=== PATIENT | female | born 1975 | race African-American/Black ===

== ENCOUNTER 2016-08-30 07:31 | Day surgery (SDC) | payer OTHER ==
[2016-08-29 12:16] VITALS: BMI 33.9
[~2016-08-30 07:31] MED LIST: BUPIVACAINE HCL/PF 0.5% (5MG/ML) 10 ML VIAL IJ ONE; ceFAZolin SODIUM 1 GM VIAL IVPB ONE
[2016-08-30] MEDS ORDERED: BUPIVACAINE HCL/PF 0.5% (5MG/ML) 10 ML VIAL ONE ×2 (08:14→13:43)
[2016-08-30] MEDS ORDERED: PROPOFOL 20 ML ONE (14:05)
[2016-08-30] MEDS ORDERED: ROCURONIUM BROMIDE 50 MG/5 ML VIAL ONE ×2 (14:05→16:00)
[2016-08-30] MEDS ORDERED: MIDAZOLAM HCL 2 MG/2 ML SINGLE DOSE VIAL ONE (14:05)
[2016-08-30] MEDS ORDERED: LIDOCAINE HCL/PF 2% SDV 5ML VIAL ONE (14:06)
--- NOTE | 2016-08-30 14:41 | HP ---
History & Physical Update - History History: No Change - Physical Physical: No Change - Assessment Assessment: No Change - Plan Plan: No Change
[2016-08-30] MEDS ORDERED: GLYCOPYRROLATE 0.2 MG/1 ML VIAL ONE (15:01)
[2016-08-30] MEDS ORDERED: ceFAZolin SODIUM 1 GM VIAL ONE (15:03)
[2016-08-30] MEDS ORDERED: ceFAZolin SODIUM 1 GM VIAL IVPB ONE (15:05)
[2016-08-30] MEDS ORDERED: DEXAMETHASONE SOD PHOSPHATE 4 MG/1 ML VIAL ONE (15:38)
[2016-08-30] MEDS ORDERED: ePHEDrine SULFATE 50 MG/1 ML AMPULE ONE (15:45)
[2016-08-30] MEDS ORDERED: oxyCODONE HCL 5 MG TABLET PO PRN ×2 (16:08→19:11)
[2016-08-30] MEDS ORDERED: ONDANSETRON 4 MG/2 ML VIAL IVPUSH PRN (16:08)
[2016-08-30] MEDS ORDERED: LACTATED RINGERS SOLUTION 1,000 ML IV SCH ×2 (16:15→19:15)
[2016-08-30] MEDS ORDERED: DESFLURANE GAS 240 ML BOTTLE IH ONE (18:20)
--- NOTE | 2016-08-30 19:09 | OP ---
Operative Note - Note: Operative Date: 08/30/16 Pre-Operative Diagnosis: ventral hernia Operation: robotic assisted laparoscopic multiple ventral hernia repair with mesh and component separation Post-Operative Diagnosis: Same as Pre-op Surgeon: Chapito Rutherford [employer] Professor: Lubna Rael Anesthesiologist/WASHCLOTH FOLDER: Jennyfer Rose Anesthesia: General Estimated Blood Loss (mls): 20 Fluid Volume Replaced (mls): 2,200 Operative Report Dictated: Yes
--- NOTE | 2016-08-30 19:10 | SURG ---
Surgery Foreign Legal Consultant Note Foreign Legal Consultant: Lubna Real PA-C Date of Service: 08/30/16 Diagnosis: ventral hernia Procedure: robotic assisted laparoscopic multiple ventral hernia repair with mesh and component separation I was present for the entirety of the operative procedure. For further detail, please refer to operative report. Visit type - Case Type Case Type: Scheduled Admission - Emergency Emergency Visit: No - New patient This patient is new to me today: Yes Date on this admission: 08/30/16 - Critical Care Critical Care patient: No
[2016-08-30] MEDS ORDERED: ACETAMINOPHEN 325 MG TABLET (FP) PO PRN (19:11)
[2016-08-30] MEDS: oxyCODONE HCL 5 MG TABLET PO PRN (22:53)
[2016-08-31] MEDS: oxyCODONE HCL 5 MG TABLET PO PRN (09:11)
[2016-08-31] MEDS ORDERED: amLODIPine BESYLATE 10 MG TABLET (FP) PO SCH (10:00)
[2016-08-31] MEDS ORDERED: FERROUS SO4 325 MG TABLET (FP) PO SCH (10:00)
[2016-08-31] MEDS ORDERED: MULTIVITAMINS THER W-MINERALS COMBO TABLET (FP) PO SCH (10:00)
[2016-08-31] MEDS ORDERED: HYDROCHLOROTHIAZIDE 25 MG TABLET (FP) PO SCH (10:00)
[2016-08-31] MEDS ORDERED: PATIENT'S OWN MEDICATION (NON-FORMULARY) (Lisinopril/Hydrochlorothiazide [Lisinopril-Hctz PO SCH (10:00)
[2016-08-31] MEDS ORDERED: LISINOPRIL 20 MG TABLET (FP) PO SCH (10:00)
--- NOTE | 2016-08-31 10:33 | PN ---
Progress Note (short form) - Note Progress Note: POD#1 Pt states that she tolerated a diet, positive flatus. No nause or emesis. Voiding without difficulty. Vital Signs Period Temp Pulse Resp BP Sys/Aparicio Pulse Ox Last 24 Hr 98.3 F-98.8 F 73-95 14-20 116-134/65-87 98-100 PE: GEN: appears comfortable CV: RRR Lungs: CTA bl ABD: soft, non-distended, inc tenderness. port sites c/d/i with dermabond. midline dressing dry. LE: no calf tenderness or swelling noted b/l A/P: 41 yo female s/p robotic ventral hernia repair with component separation S/w Dr. MOSELEY, patient for discharge today. D/w patient, she is to leave her dressing in place and wear abd binder Follow-up on Monday in his office
[2016-08-31 10:42] VITALS: BP 138/76; PULSE 87; TEMP 98.6
--- NOTE | 2016-08-31 14:07 | OP ---
DATE OF OPERATION: 08/30/2016 PROCEDURES PERFORMED: 1. Robotic-assisted laparoscopic multiple ventral hernia repair with mesh, with component separation. 2. Lysis of adhesions. PREOPERATIVE DIAGNOSIS: Ventral hernia. POSTOPERATIVE DIAGNOSIS: Multiple ventral hernias with chronic obstruction. SURGEON: Chapito Rutherford MD GRAPPLE YARDER OPERATOR: ZORA Real ANESTHESIA: General endotracheal. FINDINGS AT PROCEDURE: This is a 41-year-old female who presents with a longstanding history of nonreducible supraumbilical bulge which was about 8 x 6 cm on physical examination. Attempts to reduce the hernia proved unsuccessful. So, the patient was advised repair of the hernia and consent was obtained after discussing the risks , benefits and alteratives of the procedure. PROCEDURE IN DETAIL: The patient was brought to the operating room and placed in the supine position. General endotracheal anesthesia was administered. A roll was placed under the patient's left flank. The abdomen was then prepped and draped in the usual sterile fashion. Using 0.5% Marcaine local anesthesia was administered to the proposed incision site. The peritoneal cavity was entered using Veress needle technique with an 8-mm left subcostal incision in the anterior axillary line. Pneumoperitoneum was established. The 3-D 30-degree laparoscope was inserted and the peritoneal cavity was carefully inspected to rule out inadvertent injury. Two ventral hernias, one at a umbilicus and one at the epigastric region containing incarcerated omentum was identified. Two 8-mm ports were inserted left flank, one at the level of the umbilicus and one at the left lower quadrant, at least 15 cm away from the umbilicus and 7 mm away from each other. The laparoscope was then transferred to the middle port and the target organ was set. The robotic arms were docked. The EndoWrist shear connected to monopolar cautery was inserted at the left subcostal port and the fenestrated bipolar forceps was inserted at the left lower quadrant port. The undersigned then scrubbed out to commence the console part of the procedure. The omentum was then taken down sharply using the EndoWrist lizzy. A large amount of omentum was reduced and at this point the umbilical hernia was about 4 cm in its widest diameter and the epigastric hernia was noted to be about 8 cm in its widest diameter. The parietal peritoneum 5 cm to the left of the midline was then scored using the EndoWrist lizzy. Due to its close adherence to the posterior rectus sheath there is was decided to do a component separation of the posterior rectus sheath. This was carried down at the level of the falciform about 5 cm away from the midline from the level of the falciform ligament down to the level about 5 cm below the umbilical defect. Dissection was carried toward the midline using combined sharp dissection and blunt dissection with the EndoWrist lizzy by fenestrated bipolar. The sacs of both the umbilicus and the epigastric hernias were were taken down. After that, dissection was carried to the right of the midline the posterior rectus sheath from the rectus abdominis muscle. This dissection was carried to at least about 5 cm away from the midline. After the dissection was completed the defect was closed by apposing the anterior rectus sheath covering the rectus muscle with continuous No. 1 V-Loc nonabsorbable sutures. After the primary closure was deemed satisfactory a 25-cm x 10-cm ProGrip mesh was deployed to reinforce the primary closure of the posterior abdominal wall with at least 5 cm overlap on each side, superiorly and inferiorly. The posterior rectus sheath was then closed with running V-Loc 2-0 nonabsorbable sutures. The multiple small defects created during the dissection were also closed with V-Loc 2-0 absorbable sutures. After the closure was deemed satisfactory, the peritoneal cavity was carefully inspected and it was noted to be free of active bleeding or inadvertent bowel injury. The instruments were removed and the robotic arms were undocked. The pneumoperitoneum was evacuated and the ports were removed. The wounds were closed with a subcuticular Biosyn 4-0 sutures, reinforced with Dermabond and a pressure dressing was applied at the midline skin over the subcutaneous space to prevent seroma formation. The patient was successfully extubated and transferred to the post anesthesia care unit in satisfactory condition ESTIMATED BLOOD LOSS: About 20 mL. WOUND CLASS: Clean. MEDICATIONS: The patient received 1 g Ancef prior to proceeding with the procedure. Magda [id number] MTDD
== END 2016-08-31 11:04 | disposition home or self-care (01) ==
LOC: JASU-SURG 07:31 → J6S 21:45 → JASU-SURG 08-31 11:04
PROVIDERS: ATTEND Surgery
PROC: 8E0W4CZ Robotic Assisted Procedure of Trunk Region, Percutaneous Endoscopic Approach (ICD-10-PCS; 2016-08-30)
PROC: 0WUF4JZ Supplement Abdominal Wall with Synthetic Substitute, Percutaneous Endoscopic Approach (ICD-10-PCS; principal; 2016-08-30 09:00)
DX: K43.6 Other and unspecified ventral hernia with obstruction, without gangrene (principal); Q79.59 Other congenital malformations of abdominal wall; K66.0 Peritoneal adhesions (postprocedural) (postinfection)
CPT/HCPCS: 49653; S2900; 84703; 94760

== ENCOUNTER 2018-05-22 19:35 | Emergency (ER) | payer OTHER ==
[2018-05-22 19:58] VITALS: TEMP 98.5; BMI 33.3
[2018-05-22 20:17] LABS: BASO % 0.3 % (0-2.0); EOS % 1.6 % (0-4.5); HEMATOCRIT 30.3 % (32.4-45.2); HEMOGLOBIN 9.5 GM/dL (10.7-15.3); LYMPH % 24.8 % (8-40); MCH 20.9 pg (25.7-33.7); MCHC 31.2 g/dl (32.0-36.0); MEAN CELL VOLUME 66.8 fl (80-96); MEAN PLT VOLUME 9.6 fl (7.5-11.1); MONO % 9.5 % (3.8-10.2); NEUT % 63.8 % (42.8-82.8); PLATELET COUNT 237 K/MM3 (134-434); RBC 4.53 M/mm3 (3.60-5.2); RDW 21.5 % (11.6-15.6); WHITE BLOOD COUNT 9.7 K/mm3 (4.0-10.0)
[2018-05-22 20:25] LABS: URINE APPEARANCE CLOUDY; URINE BILIRUBIN NEGATIVE (<2.0 mg/dL); URINE COLOR YELLOW; URINE GLUCOSE (UA) NEGATIVE (NEGATIVE); URINE KETONE NEGATIVE (NEGATIVE); URINE LEUK ESTERASE 3+ (NEGATIVE); URINE NITRITE NEGATIVE (NEGATIVE); URINE PROTEIN NEGATIVE (NEGATIVE); URINE UROBILINOGEN NEGATIVE mg/dL (0.2-1.0)
[2018-05-22 20:34] LABS: EPI CELLS MANY /HPF (FEW); URINE BACTERIA RARE /hpf (NONE SEEN); URINE MUCUS RARE
[2018-05-22 21:09] LABS: ANION GAP 8 MMOL/L (8-16); BLOOD UREA NITROGEN 11 mg/dL (7-18); CALCIUM 9.3 mg/dL (8.5-10.1); CHLORIDE 103 mmol/L (98-107); CO2 26 mmol/L (21-32); CREATININE 0.6 mg/dL (0.55-1.3); GLUCOSE,RANDOM 90 mg/dL (74-106); POTASSIUM 3.6 mmol/L (3.5-5.1); SODIUM 137 mmol/L (136-145)
[2018-05-22] MEDS ORDERED: amLODIPine BESYLATE 10 MG TABLET (FP) PO ONE (21:21)
[2018-05-22] MEDS ORDERED: LISINOPRIL 20 MG TABLET (FP) PO ONE (21:21)
[2018-05-22] MEDS ORDERED: ATENOLOL 25 MG TABLET (FP) PO ONE (21:21)
--- NOTE | 2018-05-22 21:33 | PDOC ---
History of Present Illness - General Chief Complaint: Weakness Stated Complaint: Lightheaded/weakness Time Seen by Provider: 05/22/18 21:14 History Source: Patient Exam Limitations: No Limitations - History of Present Illness Initial Comments: 05/22/18 21:27 HISTORY OF PRESENT ILLNESS: 43-year-old woman with past medical history of hypertension presents emergency department for evaluation of general malaise and weakness for the past 3 days. Patient reports also having a mild headache starting this morning upon awakening. Patient states she takes 3 different antihypertensives but does so irregularly. Patient has not taken her medication earlier today. Patient noted to have a blood pressure 178/113 in triage as well as a heart rate of 101. No recent travel or sick contacts. PAST MEDICAL HISTORY: HTN SURGICAL HISTORY: Denies ALLERGIES: No known drug allergies REVIEW OF SYSTEMS General/Constitutional: Denies fever or chills. Generalized weakness, weight change. HEENT: Denies change in vision. Denies ear pain or discharge. Denies sore throat. Cardiovascular: Denies chest pain or shortness of breath. Respiratory: Denies cough, wheezing, or hemoptysis. Gastrointestinal: Denies nausea, vomiting, diarrhea or constipation. Denies rectal bleeding. Genitourinary: Denies dysuria, frequency, or change in urination. Musculoskeletal: Denies joint or muscle swelling or pain. Denies neck or back pain. Skin and breasts: Denies rash or easy bruising. Neurologic: Frontal headache 10. +vertigo with change of position. Denies loss of consciousness, or loss of sensation. Psychiatric: Denies depression or anxiety. Endocrine: Denies increased thirst. Denies abnormal weight change. Hematologic/Lymphatic: Denies anemia, easy bleeding, or history of blood clots. Allergic/Immunologic: Denies hives or skin allergy. Denies latex allergy. PHYSICAL EXAM General Appearance: Well-appearing, appropriately dressed. No apparent distress , no intoxication. HEENT: EOMI, PERRLA, normal ENT inspection, normal voice, TMs normal, pharynx normal. No conjunctival pallor. No photophobia, scleral icterus. Respiratory/Chest: Lungs CTAB. No shortness of breath, chest tenderness, respiratory distress, accessory muscle use. No crackles, rales, rhonchi, stridor , wheezing, dullness Cardiovascular: RRR. S1, S2. No JVD, murmur, bradycardia, tachycardia. Gastrointestinal/Abdominal: Normal bowel sounds. Abdomen soft, non-distended. No tenderness or rebound tenderness. No organomegaly, pulsatile mass, guarding, hernia, hepatomegaly, splenomegaly. Neurologic: director of services II-XII intact. Fully oriented, alert. Appropriate mood/affect. Motor strength 5/5. No appreciable EOM palsy, facial droop or sensory deficit. (-)[place]. Past History - Past Medical History Allergies/Adverse Reactions: Allergies Allergy/AdvReac Type Severity Reaction Status Date / Time No Known Allergies Allergy Verified 05/22/18 19:53 Home Medications: Ambulatory Orders Amlodipine Besylate 10 mg PO DAILY 08/29/16 Ferrous Sulfate 325 mg PO DAILY 08/29/16 Lisinopril/Hydrochlorothiazide [Lisinopril-Hctz 20-25 mg Tab] 1 each PO DAILY Multivit,Calc,Mins/Iron/Folic [One-A-Day Women's Tablet] 1 each PO DAILY Anemia: No Asthma: No Cancer: No Cardiac Disorders: No CVA: No COPD: No CHF: No Dementia: No Diabetes: No GI Disorders: No Disorders: No HTN: Yes Hypercholesterolemia: No Liver Disease: No Seizures: No Thyroid Disease: No - Suicide/Smoking/Psychosocial Hx Smoking History: Never smoked Hx Alcohol Use: No Drug/Substance Use Hx: No Substance Use Type: None *Physical Exam - Vital Signs Last Vital Signs Temp Pulse Resp BP Pulse Ox 98.5 F 101 H 20 178/113 H 100 05/22/18 19:53 05/22/18 19:53 05/22/18 19:53 05/22/18 19:53 05/22/18 19:53 Moderate Sedation - Procedure Monitoring Vital Signs: Procedure Monitoring Vital Signs Temperature 98.5 F 05/22/18 19:53 Pulse Rate 101 H 05/22/18 19:53 Respiratory Rate 20 05/22/18 19:53 Blood Pressure 178/113 H 05/22/18 19:53 O2 Sat by Pulse Oximetry (%) 100 05/22/18 19:53 ED Treatment Course - LABORATORY CBC & Chemistry Diagram: 05/22/18 20:09 05/22/18 20:08 - ADDITIONAL ORDERS Additional order review: Laboratory Results 05/22/18 05/22/18 20:13 20:08 Sodium 137 Potassium 3.6 Chloride 103 Carbon Dioxide 26 Anion Gap 8 BUN 11 Creatinine 0.6 Creat Clearance w eGFR > 60 Random Glucose 90 Calcium 9.3 Urine Color Yellow Urine Appearance Cloudy Urine pH 7.0 Ur Specific [place] 1.014 Urine Protein Negative Urine Glucose (UA) Negative Urine Ketones Negative Urine Blood Negative Urine Nitrite Negative Urine Bilirubin Negative Urine Urobilinogen Negative Ur Leukocyte Esterase 3+ H Urine WBC (Auto) 11 Urine RBC (Auto) 2 Ur Epithelial Cells Many Urine Bacteria Rare Urine Mucus Rare 05/22/18 20:09 RBC 4.53 MCV 66.8 L MCHC 31.2 L RDW 21.5 H MPV 9.6 Neutrophils % 63.8 Lymphocytes % 24.8 Monocytes % 9.5 Eosinophils % 1.6 Basophils % 0.3 Medical Decision Making - Medical Decision Making 05/22/18 21:33 A/P: 43-year-old woman with generalized weakness and intermittent vertigo for 3 days Atenolol 25 mg Norvasc 10 mg Lisinopril 20 mg Laboratory testing suggestive of urinary tract infection. I will treat for the urinary tract infection and reassess the patient after receiving her antihypertensives. EKG-sinus tachycardia with rate of 102. Normal intervals noted. T-wave flattening noted in leads III, aVF 05/22/18 22:53 Patient is returned to baseline. Blood pressure is currently 165/97. Heart rate has decreased to 97. I'll discharge the patient home with prescription for Keflex. I discussed the physical exam findings, ancillary test results and final diagnoses with the patient. I answered all of the patient's questions. The patient was satisfied with the care received and felt comfortable with the discharge plan and treatment plan. The patient will call their primary care physician within 24 hours to arrange follow-up and will return to the Emergency Department with any new, persistent or worsening symptoms. *DC/Admit/Observation/Transfer Diagnosis at time of Disposition: Hypertension complications - Discharge Dispostion Disposition: HOME Condition at time of disposition: Stable Decision to Admit order: No - Referrals - Patient Instructions Additional Instructions: Take your medications as prescribed. Make appointment to primary doctor for reevaluation. Eat a low-salt diet. Take Keflex 500 mg twice a day until all medications have been completed. Return to emergency department for any concerns. Thank you very much for choosing us to provide your emergent health care needs. - Post Discharge Activity
[2018-05-22] MEDS ORDERED: ATENOLOL 25 MG TABLET (FP) ONE (21:50)
[2018-05-22] MEDS ORDERED: amLODIPine BESYLATE 5 MG TABLET (FP) ONE (21:50)
[2018-05-22] MEDS ORDERED: LISINOPRIL 20 MG TABLET (FP) ONE ×2 (21:51→22:08)
[2018-05-22 22:22] LABS: ANISOCYTOSIS 2+; MACROCYTOSIS 1+; PLATELET ESTIMATE ADEQUATE
--- NOTE | 2018-05-22 22:50 | PDOC ---
*Physical Exam - Vital Signs Last Vital Signs Temp Pulse Resp BP Pulse Ox 98.5 F 98 H 20 165/97 100 05/22/18 19:53 05/22/18 21:55 05/22/18 19:53 05/22/18 21:55 05/22/18 19:53 ED Treatment Course - LABORATORY CBC & Chemistry Diagram: 05/22/18 20:09 05/22/18 20:08 - ADDITIONAL ORDERS Additional order review: Laboratory Results 05/22/18 05/22/18 20:13 20:08 Sodium 137 Potassium 3.6 Chloride 103 Carbon Dioxide 26 Anion Gap 8 BUN 11 Creatinine 0.6 Creat Clearance w eGFR > 60 Random Glucose 90 Calcium 9.3 Urine Color Yellow Urine Appearance Cloudy Urine pH 7.0 Ur Specific [place] 1.014 Urine Protein Negative Urine Glucose (UA) Negative Urine Ketones Negative Urine Blood Negative Urine Nitrite Negative Urine Bilirubin Negative Urine Urobilinogen Negative Ur Leukocyte Esterase 3+ H Urine WBC (Auto) 11 Urine RBC (Auto) 2 Ur Epithelial Cells Many Urine Bacteria Rare Urine Mucus Rare 05/22/18 20:09 RBC 4.53 MCV 66.8 L MCHC 31.2 L RDW 21.5 H MPV 9.6 Neutrophils % 63.8 Lymphocytes % 24.8 Monocytes % 9.5 Eosinophils % 1.6 Basophils % 0.3 - Medications Given in the ED: ED Medications Discontinued Medications Generic Name Dose Route Start Last Admin Trade Name Freq PRN Reason Stop Dose Admin Amlodipine Besylate 10 mg 05/22/18 21:21 05/22/18 22:04 Norvasc - PO 05/22/18 21:22 10 mg ONCE ONE Administration Atenolol 25 mg 05/22/18 21:21 05/22/18 22:04 Tenormin - PO 05/22/18 21:22 25 mg ONCE ONE Administration Lisinopril 20 mg 05/22/18 21:21 05/22/18 22:15 Prinivil PO 05/22/18 21:22 20 mg ONCE ONE Administration Medical Decision Making - Medical Decision Making 05/22/18 22:49 Patient seen by the advanced practice provider under my direct supervision. Ancillary testing reviewed as necessary. I agree with plan as outlined by the advanced practice provider. *DC/Admit/Observation/Transfer Diagnosis at time of Disposition: Hypertension complications - Discharge Dispostion Disposition: HOME Condition at time of disposition: Stable - Prescriptions Prescriptions: Cephalexin Monohydrate [Keflex -] 500 mg PO BID #14 capsule - Referrals - Patient Instructions Additional Instructions: Take your medications as prescribed. Make appointment to primary doctor for reevaluation. Eat a low-salt diet. Take Keflex 500 mg twice a day until all medications have been completed. Return to emergency department for any concerns. Thank you very much for choosing us to provide your emergent health care needs. - Post Discharge Activity
[2018-05-22 23:23] VITALS: BP 154/96; PULSE 89
--- NOTE | 2018-05-23 09:55 | EKG ---
Test Reason : Blood Pressure : / mmHG Vent. Rate : 102 BPM Atrial Rate : 102 BPM P-R Int : 160 ms QRS Dur : 082 ms QT Int : 350 ms P-R-T Axes : 056 015 035 degrees QTc Int : 456 ms SINUS TACHYCARDIA POSSIBLE LEFT ATRIAL ENLARGEMENT LEFT VENTRICULAR HYPERTROPHY NONSPECIFIC T WAVE ABNORMALITY ABNORMAL ECG NO PREVIOUS ECGS AVAILABLE Confirmed by JOANA MYLES, GRACE ([id number]) on 05/23/2018 9:55:49 AM Referred By: Confirmed By:GRACE BERNARD MD
== END 2018-05-22 23:22 | disposition home or self-care (01) ==
LOC: JER 19:35
DX: I10 Essential (primary) hypertension (principal)
CPT/HCPCS: 36415; 80048; 81003; 81015; 84703; 85025; 87086; 93005; 93010; 99282-25

== ENCOUNTER 2021-02-14 11:39 | Emergency (ER) | payer OTHER ==
[2021-02-14 11:46] VITALS: BP 146/96; PULSE 86; TEMP 98; BMI 33.3
[2021-02-14 14:14] LABS: BASO % 0.5 % (0-2.0); EOS % 1.4 % (0-4.5); HEMOGLOBIN 11.7 GM/dL (10.7-15.3); LYMPH % 28.6 % (8-40); MCH 25.3 pg (25.7-33.7); MCHC 31.6 g/dl (32.0-36.0); MEAN PLT VOLUME 11.5 fl (7.5-11.1); MONO % 10.2 % (3.8-10.2); NEUT % 59.3 % (42.8-82.8); PLATELET COUNT 245 10^3/uL (134-434); RBC 4.63 M/mm3 (3.60-5.2); RDW 16.6 % (11.6-15.6); WHITE BLOOD COUNT 7.1 K/mm3 (4.0-10.0)
[2021-02-14 14:33] LABS: CHLORIDE 106 mmol/L (98-107); SODIUM 138 mmol/L (136-145)
[2021-02-14 14:35] LABS: CALCIUM 9.3 mg/dL (8.5-10.1)
[2021-02-14 14:36] LABS: ANION GAP 9 MMOL/L (8-16); BLOOD UREA NITROGEN 8.4 mg/dL (7-18); CO2 24 mmol/L (21-32)
[2021-02-14 14:38] LABS: GLUCOSE,RANDOM 100 mg/dL (74-106)
[2021-02-14 14:39] LABS: CREATININE 0.5 mg/dL (0.55-1.3); SGOT/AST 24 U/L (15-37); SGPT/ALT 28 U/L (13-61)
[2021-02-14 14:40] LABS: BILIRUBIN,TOTAL 0.5 mg/dL (0.2-1); TOT PROT 7.9 g/dl (6.4-8.2)
[2021-02-14 14:42] LABS: ALK PHOS 67 U/L (45-117)
== END 2021-02-14 15:18 | disposition home or self-care (01) ==
LOC: JER 11:39
DX: R42 Dizziness and giddiness (principal); R07.9 Chest pain, unspecified
CPT/HCPCS: 36415; 71046-TC-FY; 80053; 82550; 82553; 84484; 85025; 93005; 93010; 99285-25

== ENCOUNTER 2023-08-24 14:40 | Emergency (ER) | payer OTHER ==
[2023-08-24 14:54] VITALS: BP 159/90; PULSE 93; RESP 17; TEMP 98.1; BMI 34.0
[2023-08-24] MEDS ORDERED: KETOROLAC TROMETHAMINE 30 MG/1 ML VIAL ONE (16:31)
[2023-08-24] MEDS ORDERED: LIDOCAINE 4% PATCH TP ONE (16:31)
[2023-08-24] MEDS: KETOROLAC TROMETHAMINE 30 MG/1 ML VIAL IM ONE (16:36)
[2023-08-24] MEDS: LIDOCAINE 5% TOPICAL PATCH TP ONE (16:36)
[2023-08-24] MEDS ORDERED: LIDOCAINE PATCH REMOVAL MC SCH (22:00)
== END 2023-08-24 16:41 | disposition home or self-care (01) ==
LOC: JERFT 14:40
PROC: 2W3FX1Z Immobilization of Left Hand using Splint (ICD-10-PCS; principal; 2023-08-24)
DX: S39.012A Strain of muscle, fascia and tendon of lower back, initial encounter (principal); M54.50 Low back pain, unspecified; X58.XXXA Exposure to other specified factors, initial encounter
CPT/HCPCS: 72100-TC-FY; 73502-TC-LT-FY; 99284-25